=== PATIENT | female | born 1970 | race Caucasian/White ===

== ENCOUNTER 2017-01-30 02:06 | Inpatient (IN) | payer OTHER ==
[~2017-01-30] VITALS: Ht 165.1 cm; Wt 86.2 kg
[~2017-01-30 02:06] MED LIST: MOTRIN800 MG PO; PERCOCET 325 MG1 TA2 PO
--- NOTE | 2017-01-30 10:37 | Operative Report ---
Operative/Inv Procedure Report Surgery Date: 01/30/17 Name of Procedure: Supracervical hysterectomy right salpingo-oophorectomy Pre-Operative Diagnosis: Metromenorrhagia Post-Operative Diagnosis: Same Estimated Blood Loss: 500 Surgeon/Railway Engineer: RAYA WOOD,TIERNEY Worthington and Dr. Patel Anesthesia: general endotracheal tube Operative/Procedure Note Note: Procedure note patient was seen the operating room placed prone position after adequate anesthesia patient placed in dorsolithotomy position vagina from dorsal fashion bladder was catheterized examination under anesthesia performed placement of stents was performed by Dr. Aileen Zambrano will dictate that part of the case I at this point the abdomen was prepped and draped so fashion patient had been returned supine position on the through an old Pfannenstiel skin incision 2 finger breadths of symptoms pubis skin was cut was carried down to rectus fascia which was cut in curvilinear fashion either direction peritoneal cavity was entered high into the abdomen Almeida O'Gustavo was placed in usual fashion the peritoneum on had significant fat pads had to be sutured to the skin during surgery at this point the uterus was elevated using a fork tenaculum the round ligament on the right was identified and suture ligated using 0 round ligament left was identified suture-ligated 0 the bladder flap spelled sharply at this point sequentially cervical branches uterine artery were clamped and cut to level of the external os specimen was removed using a Bovie on the cervical remnant was sutured using 0 hemostasis was apparent the abdomen was irrigated close amounts warm saline 6 to ensure for hemostasis the right tube was picked up and ovary clamped 2 using Green ducts and specimen was removed and oversewn using 02 hemostasis was apparent at the end the case all pedicles were reexamined for hemostasis lap pads were removed and the wrist VINH STA was applied to the cervical cuff hemostasis was apparent the peritoneum was reapproximated 0 the sutures from the peritoneum to the skin were removed the fascia was reapproximated to continue sutures #1 subcutaneous tissue was Bovie coagulated as well as a 0 suture was used to the space of the 6 cm on subcutaneous tissue skin was reapproximated cara at the end the case on sterile dressing was applied the stents removed bilaterally tip intact the counts correct the patient was extubated and transferred recovery room awake alert counts correct
[2017-01-31 08:45] LABS: ABSOLUTE BASOPHIL COUNT 0 /CUMM (0.0-0.2); ABSOLUTE EOSINOPHIL COUNT 0 /CUMM (0.0-0.7); ABSOLUTE GRANULOCYTE CT 10.1 /CUMM (1.4-6.5); ABSOLUTE LYMPH COUNT 1.1 /CUMM (1.2-3.4); ABSOLUTE MONOCYTE COUNT 0.8 /CUMM (0.10-0.60); BASOPHIL % 0.1 % (0.0-2.0); EOSINOPHIL % 0 % (0-5); GRANULOCYTE % 84.4 % (42.2-75.2); HEMATOCRIT 35.2 % (37-47); MEAN CORPUSCULAR HGB 31.5 PG (27.0-31.0); MEAN CORPUSCULAR HGB CONC 33.8 G/DL (33.0-37.0); MEAN CORPUSCULAR VOLUME 93.2 FL (81.0-99.0); PLATELET COUNT 282 /CUMM (130-400); RBC DISTRIBUTION WIDTH 13.9 % (11.5-14.5); RED BLOOD CELL CT 3.78 /CUMM (4.20-5.40)
[2017-01-31] MEDS ORDERED: PERCOCET 5-3251 EACH PO (09:06)
[2017-01-31] MEDS ORDERED: IBUPROFEN800 M1 PO (09:06)
== END 2017-01-31 12:27 | DRG 743 ==
LOC: SDA 02:06 → ENRESERV 11:47 → ENTRNSPT 12:29 → EDTRNSPTSTS 13:07 → EDTRNSPT 13:07 → GNO 13:18 → CMPTRNSPT 13:24 → GNO 01-31 12:27
PROVIDERS: ADMIT Specialist
PROC: 0UT90ZZ Resection of Uterus, Open Approach (ICD-10-PCS; principal; 2017-01-30)
PROC: 0UT00ZZ Resection of Right Ovary, Open Approach (ICD-10-PCS; 2017-01-30)
PROC: 0UT50ZZ Resection of Right Fallopian Tube, Open Approach (ICD-10-PCS; 2017-01-30)
PROC: 0T788DZ Dilation of Bilateral Ureters with Intraluminal Device, Via Natural or Artificial Opening Endoscopic (ICD-10-PCS; 2017-01-30)
DX: N92.1 Excessive and frequent menstruation with irregular cycle (principal)
CPT/HCPCS: GNOS; 36415; 81025; 87086; 87147; C9399; J0131; J1170; J1200; J1580; J1650; J1885; J2405